=== PATIENT | female | born 1960 | race Caucasian/White ===

== ENCOUNTER 2023-03-09 12:05 | Emergency (ER) | payer OTHER ==
[~2023-03-09] VITALS: Ht 175.3 cm; Wt 90.7 kg
[~2023-03-09 12:05] MED LIST: LISINOPRIL20 MG PO; OXYC1TAB9 PO; SIMVASTATIN20 MG
== END 2023-03-09 16:55 | disposition home or self-care (01) ==
LOC: ER 12:05
DX: K52.9 Noninfective gastroenteritis and colitis, unspecified (principal); E78.00 Pure hypercholesterolemia, unspecified; I10 Essential (primary) hypertension

== ENCOUNTER 2024-11-04 12:45 | Inpatient (IN) | payer OTHER ==
[~2024-11-04] VITALS: Ht 172.7 cm; Wt 90.3 kg
[2024-11-04] MEDS ORDERED: ROSUVASTATIN CA10 MG PO (14:48)
[2024-11-04] MEDS ORDERED: PROTONIX40 MG PO (14:48)
[2024-11-04] MEDS ORDERED: SINGULAIR10 MG PO (14:48)
[2024-11-04] MEDS ORDERED: GRALISE600 MG PO (14:48)
[2024-11-04] MEDS ORDERED: TRAMADOL HCL E100 M1 PO (14:49)
[2024-11-04] MEDS ORDERED: RESTORIL30 MG PO (14:49)
[2024-11-04 14:50] VITALS: BP 122/88
[2024-11-08] MEDS ORDERED: AMOX-CLAV 875-1 EACH PO (09:06)
[2024-11-08] MEDS ORDERED: MEDROLPACK PO (09:06)
[2024-11-08] MEDS ORDERED: PERCOCET 5-3251 EACH PO (09:06)
[2024-11-08] MEDS ORDERED: ZOFRAN8 MG PO (09:06)
[2024-11-08] MEDS ORDERED: COLACE100 MG PO (09:06)
[2024-11-08] MEDS ORDERED: NEURONTIN800 MG PO (09:07)
[2024-11-08] MEDS ORDERED: GABAPENTIN100 M2 PO (09:07)
[2024-11-08] MEDS ORDERED: 0.9 % SODIUM CHLORIDE 1,000 ML IV SCH (09:15)
[2024-11-08] MEDS ORDERED: ENALAPRILAT DIHYDRATE 1.25 MG/ML VIAL IV PRN (09:15)
[2024-11-08] MEDS ORDERED: PROMETHAZINE HCL 50 MG/ML AMPUL IM PRN (09:15)
[2024-11-08] MEDS ORDERED: CEFAZOLIN SODIUM 1,000 MG VIAL IV SCH (11:00)
[2024-11-08] MEDS ORDERED: VANCOMYCIN HCL 1,000 MG VIAL IV ONE (11:00)
[2024-11-08] MEDS ORDERED: VANCOMYCIN HCL 1,000 MG VIAL IR ONE ×2 (11:00)
[2024-11-08] MEDS ORDERED: METHYLPREDNISOLONE ACETATE 80 MG/ML VIAL IM ONE ×3 (11:15)
[2024-11-08] MEDS ORDERED: METHYLPREDNISOLONE SOD SUCC 125 MG VIAL IV ONE ×3 (11:15→13:30)
[2024-11-08] MEDS ORDERED: THROMBIN,HU/FIBRINOGEN/CALCIUM 10 ML SYRINGE TOP ONE (11:24)
[2024-11-08] MEDS ORDERED: HEMOSTATIC MATRIX WITH THROMBIN KIT TOP ONE ×2 (11:30)
[2024-11-08] MEDS ORDERED: TRANEXAMIC ACID 100MG/1ML (1000MG) AMPUL IV ONE (12:06)
[2024-11-08] MEDS ORDERED: DOCUSATE SODIUM 100MG CAP PO SCH (13:00)
[2024-11-08] MEDS ORDERED: MEPERIDINE HCL/PF 50 MG/ML VIAL IM PRN (13:00)
[2024-11-08] MEDS ORDERED: METHYLPREDNISOLONE SOD SUCC 40 MG VIAL ONE (13:20)
[2024-11-08] MEDS ORDERED: METHYLPREDNISOLONE SOD SUCC 125 MG VIAL ONE ×2 (13:22→15:38)
[2024-11-08] MEDS ORDERED: MORPHINE SULFATE 4 MG/ML VIAL IV ONE ×2 (15:10→15:40)
[2024-11-08] MEDS ORDERED: CEFAZOLIN SODIUM 1,000 MG VIAL ONE (15:39)
[2024-11-08] MEDS ORDERED: ONDANSETRON HCL 2 MG/ML VIAL ONE (16:33)
[2024-11-08] MEDS ORDERED: MONTELUKAST SODIUM 10 MG TABLET PO SCH (17:00)
[2024-11-08] MEDS ORDERED: METHYLPREDNISOLONE SOD SUCC 125 MG VIAL IV SCH (17:00)
[2024-11-08] MEDS ORDERED: FAMOtidine 20 MG TABLET PO SCH (17:00)
[2024-11-08] MEDS ORDERED: CEFAZOLIN SODIUM 1,000 MG in 0.9 % SODIUM CHLORIDE 50 ML IV SCH (17:00)
[2024-11-08] MEDS ORDERED: ACETAMINOPHEN 500 MG GEL..CAP PO SCH (20:00)
[2024-11-08] MEDS ORDERED: VANCOMYCIN HCL 1,000 MG VIAL IV SCH (21:00)
[2024-11-08] MEDS ORDERED: GABAPENTIN 800 MG TABLET PO SCH (21:00)
[2024-11-08 21:23] VITALS: BP 136/86; O2SAT 98
[2024-11-08 23:30] VITALS: BP 116/74; O2SAT 100
[2024-11-09] VITALS (7 sets, daily range): BP systolic 108–132; BP diastolic 63–79; O2SAT 96–100
[2024-11-09] MEDS ORDERED: SODIUM CHLORIDE 0.45 % 1,000 ML IV SCH
[2024-11-09] MEDS ORDERED: OxyCODONE HCL 5 MG TABLET (ROXICODONE) PO PRN (06:01)
[2024-11-09 06:18] LABS: HEMATOCRIT 31.4 % (36.0-45.00); HEMOGLOBIN 10.6 g/dL (12.0-15.00); MEAN CELL VOLUME 87.8 fL (80.00-100.00); MEAN CORPUSCULAR HEMOGLOBIN 29.7 pg (27.00-32.0); MEAN CORPUSCULAR HGB CONC 33.8 g/dl (32.0-36.0); PLATELET COUNT 258 K/uL (150-450); RED BLOOD COUNT 3.57 M/uL (4.00-6.00)
[2024-11-09 06:52] LABS: CALCIUM 8.6 mg/dL (8.5-10.1); CREATININE SERUM 0.62 mg/dL (0.55-1.02); GFR 97.53; POTASSIUM 4.2 mEq/L (3.5-5.1)
[2024-11-09] MEDS ORDERED: TAMSULOSIN HCL 0.4 MG CAP PO SCH (09:00)
[2024-11-09] MEDS ORDERED: LISINOPRIL 20 MG TABLET PO SCH ×2 (09:00)
[2024-11-09] MEDS ORDERED: VANCOMYCIN HCL 1,000 MG VIAL IV ONE (21:45)
[2024-11-10 04:59] VITALS: BP 107/65; O2SAT 95
[2024-11-10 08:28] VITALS: BP 130/80; O2SAT 100
== END 2024-11-10 12:14 | DRG 428 ==
LOC: O/R 11-08 06:00 → PED 11-08 06:00 → SURH 11-08 10:00 → PED 11-08 17:05
PROVIDERS: ADMIT Orthopaedic Surgery Orthopaedic Surgery of the Spine; ATTEND Orthopaedic Surgery Orthopaedic Surgery of the Spine
PROC: 0SG10K0 Fusion of 2 or more Lumbar Vertebral Joints with Nonautologous Tissue Substitute, Anterior Approach, Anterior Column, Open Approach (ICD-10-PCS; 2024-11-08)
PROC: XRGC0R7 Fusion of 2 or more Lumbar Vertebral Joints using Custom-Made Anatomically Designed Interbody Fusion Device, Open Approach, New Technology Group 7 (ICD-10-PCS; 2024-11-08)
PROC: 0ST20ZZ Resection of Lumbar Vertebral Disc, Open Approach (ICD-10-PCS; 2024-11-08)
PROC: 0QB30ZZ Excision of Left Pelvic Bone, Open Approach (ICD-10-PCS; 2024-11-08)
PROC: 07DR0ZZ Extraction of Iliac Bone Marrow, Open Approach (ICD-10-PCS; 2024-11-08)
PROC: 4A1104G Monitoring of Peripheral Nervous Electrical Activity, Intraoperative, Open Approach (ICD-10-PCS; 2024-11-08)
PROC: 4A12X4Z Monitoring of Cardiac Electrical Activity, External Approach (ICD-10-PCS; 2024-11-08)
PROC: 0SG1071 Fusion of 2 or more Lumbar Vertebral Joints with Autologous Tissue Substitute, Posterior Approach, Posterior Column, Open Approach (ICD-10-PCS; principal; 2024-11-08 10:00)
DX: M41.86 Other forms of scoliosis, lumbar region (principal); M51.360 Other intervertebral disc degeneration, lumbar region with discogenic back pain only; M48.062 Spinal stenosis, lumbar region with neurogenic claudication